=== PATIENT | female | born 1955 | race Caucasian/White ===

== ENCOUNTER 2023-11-11 12:03 | Emergency (ER) | payer OTHER, SELFPAY ==
[2023-11-11 12:08] VITALS: BP 154/79
--- NOTE | 2023-11-11 12:16 | ED.PDOC.TRB ---
ED Provider Triage
-
68-year-old female with chest pain intermittent over the past 3 to 4 days worse over the past hour does occasionally radiate to her right shoulder. She is on his indigestion, tried tums without relief. Describes squeezing pain to chest. EKG
without acute changes in triage. Labs drawn. CXR ordered. Took 81 mg aspirin at home.
[2023-11-11 12:31] LABS: % Basophils 0.8 % (0-2); % Eosinophils 2.6 % (0-6); % Immature Granulocytes 0.5 % (0-0.5); % Monocytes 7.3 % (1.7-9.3); % Neutrophils 50.8 % (42.2-75.2); Absolute Basophils 0.1 10^3/uL (0-0.2); Absolute Eosinophils 0.2 10^3/uL (0-0.7); Absolute Lymphocytes 3.2 10^3/uL (1.2-3.4); Absolute Monocytes 0.6 10^3/uL (0.1-0.6); Absolute Neutrophils 4.3 10^3/uL (1.4-6.5); Hematocrit 41.3 % (37.0-47.0); Hemoglobin 14.6 g/dL (12.0-16.0); Mean Corp Hgb Conc. 35.4 g/dL (33.0-37.0); Mean Corpuscular Hgb 29.9 pg (27.0-31.0); Mean Corpuscular Volume 84.5 fL (81.0-99.0); Mean Platelet Volume 9.7 fL (7.4-10.4); Nucleated Red Blood Cells % 0 %; Platelet Count 238 10^3/uL (130-400); Red Blood Cell Count 4.89 10^6/uL (4.20-5.40); White Blood Cell Count 8.5 10^3/uL (4.8-10.8)
[2023-11-11 12:47] LABS: ALT (SGPT) 30 U/L (0-35); AST (SGOT) 27 U/L (14-36); Albumin 4.5 g/dl (3.5-5.0); Alkaline Phosphatase 96 U/L (38-126); Blood Urea Nitrogen 18 mg/dl (7-17); Calcium 9.9 mg/dl (8.4-10.2); Carbon Dioxide 27 mmol/L (22-30); Chloride 105 mmol/L (98-107); Glucose 101 mg/dl (70-99); Potassium 4.8 mmol/L (3.5-5.1); Sodium 142 mmol/L (135-145); Total Bilirubin 0.6 mg/dl (0.2-1.3); Total Protein 7.1 g/dl (6.3-8.2); eGFR > 60.00
[2023-11-11 12:58] LABS: Troponin I < 0.012 ng/ml
--- NOTE | 2023-11-11 15:21 | ED.GENMED ---
History of Present Illness
General
Chief Complaint: Chest Pain
Source: patient and spouse
Exam Limitations: none
Time Seen by Provider: 11/11/23 13:06
Nursing documentation reviewed up to this point in time: agreed with
History of Present Illness
History of Present Illness:
68-year-old female with remote history of breast cancer status post right lumpectomy no active cancer at this time presenting to the emergency department today with concerns of chest pain off and on for the last few days thought it might be
indigestion but it is getting worse over the past hour prior to arrival. Radiates to the right arm no shortness of breath no rating to the back no tearing sensation no recent history of trauma surgery immobilization, no history of blood clots or
leg swelling.
Past History
Past History
ED Past Medical History: Cancer and Other (Previous breast cancer, status post appendectomy, right shoulder fracture)
ED Past Surgical History: Appendectomy and Gynecological
Social History
Tobacco: Non-smoker
Alcohol: Occasional
Family History
Family History: Other (Strokes)
Review of Systems
Review of Systems
Allergies reviewed?: Yes
All Other Systems: ROS reviewed and negative except as documented in HPI and ROS
Phy Exam
Physical Exam
Physical Exam:
GENERAL: Alert , in no apparent distress
EYE: pupils equal and reactive
NECK: Supple, no significant adenopathy.
ENT: o/p clr, mmm.
CARDIAC: Regular rate and rhythm .
LUNGS: Clear breath sounds bilaterally, no acute respiratory distress, no wheezes/rales/rhonchi
ABDOMEN: Soft, without focal tenderness, no r/g, no cvat
NEUROLOGICAL: Alert and oriented, no focal neuro deficits
SKIN: Warm and dry, skin intact.
MUSCULOSKELETAL: No edema, well perfused.
PSYCH: Normal and appropriate interaction.
Scores
Heart Score for Chest Pain Patients
STEMI patient?: No
History: Slightly or Non-Suspicious
ECG: Normal
Age: >/= 65 years
Risk Factors: 1 or 2 Risk Factors
Troponin: </= Normal Limit
Heart Score for Chest Pain Patients: 3
Heart Score Risk: 2.5% MACE over next 6 weeks
Course
Orders/Labs/Results
Orders:
Orders
11/11/23 12:05
EKG [Electrocardiogram (*1)] Urgent
Reason for Study: Chest Pain
EKG- Treatment ONCE
11/11/23 12:14
CR Chest - 2 Views Urgent
Comment:
Reason For Exam: chest pain
11/11/23 12:19
Complete Blood Count/With Diff Urgent
Comprehensive Metabolic Panel Urgent
Troponin I Urgent
11/11/23 15:08
EKG [Electrocardiogram (*1)] Urgent
Reason for Study: Chest Pain
EKG- Treatment ONCE
11/11/23 15:15
Troponin I Urgent
Abnormal Lab Results
11/11/23
12:19
BUN 18 H mg/dl
(7-17)
Glucose 101 H mg/dl
(70-99)
11/11/23 12:19
11/11/23 12:19
Vital Signs
Initial and Last Documented VS:
Initial Vital Signs
Temp Pulse Resp BP Pulse Ox
97.7 F 76 18 154/79 99
11/11/23 12:08 11/11/23 12:08 11/11/23 12:08 11/11/23 12:08 11/11/23 12:08
Last Documented Vital Signs
Temp Pulse Resp BP Pulse Ox
97.7 F 74 15 148/76 99
11/11/23 12:08 11/11/23 17:02 11/11/23 17:02 11/11/23 17:02 11/11/23 17:02
MDM/Problems Addressed
MDM/Problems Addressed:
68-year-old female presenting to the emergency department today with concerns of chest discomfort. Worsening just prior to arrival to the emergency department has had this intermittently over the past few days. Radiation to the right arm no
shortness of breath diaphoresis nausea vomiting. Upon arrival blood pressure slightly elevated otherwise vital signs are normal. EKG nonischemic labs unremarkable initial troponin negative chest x-ray normal. Patient generally well-appearing
throughout ER stay 2 negative troponin levels to negative EKG stable for outpatient close follow-up with cardiology return precautions given.
*Critical Care Note
Total Time (30-74mins, 75-104mins- exclusive of procedures): Not Applicable
ED Attending Note
-
Portions of this chart may have been created with voice recognition software.� Occasional wrong word or��sound alike� substitutions may have occurred due to the inherent limitations of voice recognition software.
Discharge Plan
Departure
Patient Disposition: Home (Routine Discharge)
Date of Disposition: 11/11/23
Time of Disposition: 16:34
Patient with high blood pressure during this ER visit?: No
Condition: Good
Covid-19: Not Applicable
Discharge Problem:
Chest pain
Instructions: Chest Pain CBC Follow Up
Prescriptions:
No Action
metronidazole 500 MG tablet
500 mg PO TID Qty: 30 0RF
levofloxacin 500 MG tablet
500 mg PO DAILY 10 Days 0RF
Referrals:
Katharine Wong DO [Family Provider] -
Activity Restrictions/Additional Instructions:
You came to the emergency department today with concerns of chest discomfort. Here you had a reassuring assessment. Please follow closely with cardiology. Return to the emergency department for any worsening, new or concerning symptoms.
Interventions
Interventions:
*Risk Screen - Suicide Last Done: 11/11/23 13:00
*General Assessment Last Done: 11/11/23 13:00
*Neglect/Abuse Screening Last Done: 11/11/23 13:00
ED- Fall Risk Assessment Last Done: 11/11/23 13:00
*Nursing Disposition Last Done: 11/11/23 17:03
ED- Cardiac Assessment Last Done: 11/11/23 13:00
Discharge Date and Time
Discharge Date/Time: 11/11/23 17:04
Print Language: [id number]
[2023-11-11 16:13] LABS: Troponin I < 0.012 ng/ml
[2023-11-11 17:02] VITALS: BP 148/76
== END 2023-11-11 17:04 | disposition home or self-care (01) ==
LOC: EMR 12:03
PROVIDERS: Physician Assistant; EMERGENCY PHYSICIAN Emergency Medicine; FAMILY PHYSICIAN Family Medicine
DX: R07.89 Other chest pain (principal); M79.601 Pain in right arm; Z85.3 Personal history of malignant neoplasm of breast; Z88.2 Allergy status to sulfonamides; Z88.8 Allergy status to other drugs, medicaments and biological substances; Z91.048 Other nonmedicinal substance allergy status
CPT/HCPCS: 99284; 71046; 80053; 84484; 85025; 93005

== ENCOUNTER → 2023-12-15 09:54 | Outpatient (REF) | payer OTHER, SELFPAY | LOC: RAD 09:54 | PROVIDERS: ATTENDING PHYSICIAN Student in an Organized Health Care Education/Training Program; FAMILY PHYSICIAN Family Medicine | DX: R07.89 Other chest pain (principal) | CPT/HCPCS: 75574; Q9967 ==

== ENCOUNTER → 2024-01-07 12:51 | Outpatient (REF) | payer OTHER, SELFPAY | LOC: RAD 12:51 | PROVIDERS: ATTENDING PHYSICIAN Student in an Organized Health Care Education/Training Program; FAMILY PHYSICIAN Family Medicine | DX: R91.1 Solitary pulmonary nodule (principal) | CPT/HCPCS: 71250 ==